=== PATIENT | male | born 1975 | race Caucasian/White ===

== ENCOUNTER 2022-04-05 11:17 | Emergency (ER) | payer OTHER ==
[2022-04-05] MEDS ORDERED: BENZONATATE 100 MG CAPSULE PO STA ×2 (12:27→12:35)
[2022-04-05] MEDS ORDERED: ACETAMINOPHEN 325 MG TABLET PO STA (12:29)
[2022-04-05 12:41] LABS: B. PARAPERTUSSIS- RESP PCR PAN NOT DETECTED; B. PERTUSSIS- RESP PCR PANEL NOT DETECTED; C. PNEUMONIAE- RESP PCR PANEL NOT DETECTED; CORONAVIRUS 229E-RESP PCR NOT DETECTED; CORONAVIRUS HKU1-RESP PCR NOT DETECTED; CORONAVIRUS NL63-RESP PCR NOT DETECTED; CORONAVIRUS OC43-RESP PCR NOT DETECTED; HUMAN METAPNEUMOVIRUS NOT DETECTED; INFLUENZA A- RESP PCR PANEL NOT DETECTED; INFLUENZA B - RESP PCR PANEL NOT DETECTED; M. PNEUMONIAE- RESP PCR PANEL NOT DETECTED; PARAINFLUENZA VIRUS 1 NOT DETECTED; PARAINFLUENZA VIRUS 2 NOT DETECTED; PARAINFLUENZA VIRUS 3 NOT DETECTED; PARAINFLUENZA VIRUS 4 NOT DETECTED; RHINOVIRUS/ENTEROVIRUS NOT DETECTED; RSV- RESP PCR PANEL NOT DETECTED
[2022-04-05 12:44] LABS: SARS-CoV-2 -RESP PCR PANEL DETECTED
--- NOTE | 2022-04-05 12:47 | ED Physician Documentation ---
History of Present Illness - Stated complaint Stated Complaint: FEVER,CHILLS,BODY ACHES,COUGH - Chief complaint Chief Complaint: Resp - Additonal information Additional information: Patient 47-year-old male presenting to the emergency department with fever, cough, congestion, body ache. Tested positive for COVID at home. Comes in today for testing. Reports taking ibuprofen and [id number] cough and cold medication at home with some relief. Denies chest pain or respiratory distress. . Review of Systems Constitutional: reports: Fever Eyes: denies: Loss of vision Ears: denies: Loss of hearing Nose: reports: Rhinorrhea / runny nose, Congestion Throat: denies: Sore throat Cardiac: denies: Chest pain / pressure Respiratory: reports: Cough. denies: Dyspnea GI: denies: Abdominal Pain, Nausea, Vomiting, Diarrhea PD PAST MEDICAL HISTORY - Allergies Allergies/Adverse Reactions: Allergies Allergy/AdvReac Type Severity Reaction Status Date / Time No Known Drug Allergies Allergy Verified 04/05/22 11:37 PD ED PE NORMAL - Vitals Vital signs reviewed: Yes - General General: Alert and oriented X 3, No acute distress, Well developed/nourished - HEENT HEENT: Atraumatic, PERRL, EOMI, Ears normal, Moist mucous membranes, Pharynx benign - Neck Neck: Supple, no meningeal sign, No bony TTP, No adenopathy, Thyroid normal, No JVD - Cardiac Cardiac: RRR, No murmur, No gallop, Strong equal pulses - Respiratory Respiratory: No respiratory distress, Clear bilaterally - Abdomen Abdomen: Normal bowel sounds, Non tender - Rectal Rectal: Deferred Results - Vitals Vitals: Vital Signs - 24 hr 04/05/22 11:33 Temperature 38.0 C H Heart Rate 104 H Respiratory 16 Rate Blood Pressure 124/71 O2 Saturation 98 Oxygen O2 Source Room air - Labs Labs: Laboratory Tests 04/05/22 11:38 Nasal Adenovirus (PCR) NOT DETECTED Nasal B. parapertussis DNA (PCR) NOT DETECTED Nasal Coronavir 229E PCR NOT DETECTED Nasal Coronavir HKU1 PCR NOT DETECTED Nasal Coronavir NL63 PCR NOT DETECTED Nasal Coronavir OC43 PCR NOT DETECTED Nasal Enterovir/Rhinovir PCR NOT DETECTED Nasal Influenza B PCR NOT DETECTED Nasal Influenza A PCR NOT DETECTED Nasal Parainfluen 1 PCR NOT DETECTED Nasal Parainfluen 2 PCR NOT DETECTED Nasal Parainfluen 3 PCR NOT DETECTED Nasal Parainfluen 4 PCR NOT DETECTED Nasal RSV (PCR) NOT DETECTED Nasal B.pertussis DNA PCR NOT DETECTED Nasal C.pneumoniae (PCR) NOT DETECTED Geraldo Human Metapneumo PCR NOT DETECTED Nasal M.pneumoniae (PCR) NOT DETECTED Nasal SARS-CoV-2 (PCR) DETECTED A PD Medical Decision Making - ED course Complexity details: reviewed results, re-evaluated patient, d/w patient ED course: Patient 47-year-old male presenting to the emergency department with positive COVID test at home. PCR COVID test positive here in the emergency department. No respiratory distress. Febrile but otherwise hemodynamically stable. Discussed risks and benefits including breast current evidence for the use and dangers of Paxlovid. Patient is interested in this medication at this time. Was provided with acetaminophen and Tessalon in the emergency department as well. Discussed return precautions and follow-up instructions. Also instructed on current CDC quarantine guidelines.. Departure - Departure Disposition: 01 Home, Self Care Clinical Impression: COVID-19 Instructions: ED Viral Syndrome Comments: Thank you for allowing us to care for you today [facility]. Today you tested positive for the SARS COVID virus. Please quarantine per current CDC guidelines. As we discussed we will be providing you with a packet for the experimental medication and is Paxlovid. Please take this as directed. Please follow-up with your primary care doctor soon as possible. If anytime you develop any new or worsening symptoms please not hesitate to return.
[2022-04-05] MEDS ORDERED: NIRMATRELVIR/RITONAVIR PREPACK PO STA (13:01)
[2022-04-05 13:14] VITALS: BP 122/70
== END 2022-04-05 13:13 | disposition home or self-care (01) ==
LOC: ED 11:17
DX: U07.1 COVID-19 (principal)
CPT/HCPCS: 87633; 99283; 99284; A9270; J3490